=== PATIENT | female | born 1985 | race African-American/Black ===

== ENCOUNTER 2019-03-02 23:36 | Emergency (ER) | payer MEDICAID, OTHER ==
[~2019-03-02] VITALS: Ht 157.5 cm; Wt 73.0 kg
[~2019-03-02 23:36] MED LIST: ATENOLOL; HCTZ
[2019-03-03] MEDS ORDERED: IBUPROFEN 600MG TABLET PO ONE (02:15)
[2019-03-03] MEDS ORDERED: BACITRACIN ZINC OINT UDPKT TOP ONE (02:15)
[2019-03-03] MEDS ORDERED: LIDOCAINE HCL/PF 1% 10 MG/ML 5ML VIAL IJ ONE (02:15)
[2019-03-03] MEDS ORDERED: TETANUS, DIPHTHERIA, PERTUSSIS VAC/PF 0.5ML (>7YR OLD) IM ONE (02:15)
[2019-03-03 03:57] VITALS: BP 142/98
== END 2019-03-03 04:00 | disposition home or self-care (01) ==
LOC: ER 23:36
DX: S01.01XA Laceration without foreign body of scalp, initial encounter (principal); I10 Essential (primary) hypertension; F17.200 Nicotine dependence, unspecified, uncomplicated; W01.0XXA Fall on same level from slipping, tripping and stumbling without subsequent striking against object, initial encounter; Y93.89 Activity, other specified; Y92.098 Other place in other non-institutional residence as the place of occurrence of the external cause; Y99.8 Other external cause status
CPT/HCPCS: 12013; 90471; 90715; 99283; A4217; J3490; Z7610

== ENCOUNTER 2019-12-03 19:31 | Emergency (ER) | payer MEDICAID ==
[~2019-12-03] VITALS: Ht 154.9 cm; Wt 59.0 kg
[2019-12-04 00:56] LABS: CHLORIDE 101 mEq/L (98-107)
[2019-12-04 01:06] LABS: CLARITY URINE CLOUDY (CLEAR); COLOR URINE YELLOW (YELLOW); KETONES URINE 2+ (NEGATIVE); LEUKOCYTE ESTERASE URINE 1+ (NEGATIVE); NITRITE URINE POSITIVE (NEGATIVE); OCCULT BLOOD URINE NEGATIVE (NEGATIVE); PH URINE 6.5 (4.5-8.0); PROTEIN URINE 2+ (NEGATIVE); SPECIFIC GRAVITY URINE 1.015 (1.005-1.030)
[2019-12-04 01:08] LABS: HEMATOCRIT 41.9 % (36.0-48.0); HEMOGLOBIN 14.1 g/dL (12.0-16.0); MEAN CORPUSCULAR HEMOGLOBIN 32.7 pg (28.0-32.0); MEAN CORPUSCULAR VOLUME 97.2 fL (81.0-99.0); PLATELET 187 x1000/uL (130-400); RED BLOOD CELL COUNT 4.31 mill/uL (4.2-5.4); RED CELL DISTRIBUTION WIDTH 14.9 % (11.6-14.6)
[2019-12-04] MEDS ORDERED: POTASSIUM CHLORIDE 20MEQ TABLET SR PO SCH (01:30)
[2019-12-04] MEDS ORDERED: CEFTRIAXONE 1 G PREMIX 50 ML IV SCH (02:00)
[2019-12-04] MEDS ORDERED: CALCIUM GLUCONATE 100MG/ML 10ML VIAL IV ONE (02:15)
[2019-12-04] MEDS ORDERED: MAGNESIUM 2 G PREMIX 50 ML IV ONE (03:00)
[2019-12-04] MEDS ORDERED: CALCIUM GLUCONATE 1,000 MG in DEXT 5% WATER 100 ML IV SCH (03:00)
[2019-12-04] MEDS ORDERED: POTASSIUM CHLORIDE INJ 40 MEQ in DEXT 5% WATER 250 ML IV SCH (03:00)
[2019-12-04] MEDS ORDERED: CALCIUM CHLORIDE 1GM/10ML SYR IV ONE (03:55)
[2019-12-04 04:00] VITALS: BP 128/83
== END 2019-12-04 04:11 | disposition short-term general hospital (02) ==
LOC: ER 19:31
DX: E87.6 Hypokalemia (principal); R11.2 Nausea with vomiting, unspecified; R19.7 Diarrhea, unspecified; I45.81 Long QT syndrome; R53.1 Weakness; R25.2 Cramp and spasm; I10 Essential (primary) hypertension; F17.200 Nicotine dependence, unspecified, uncomplicated
CPT/HCPCS: 36415; 80053; 81003; 81025; 82962; 83735; 85027; 87086; 93005; 96365; 96367; 96368; 99285; J0610; J0696; J3475; J3480; J3490; J7060